=== PATIENT | male | born 1960 | race Caucasian/White ===

== ENCOUNTER 2021-03-24 22:20 | Emergency (ER) | payer OTHER ==
--- NOTE | 2021-03-24 22:45 | EDM.PDOC ---
ED HPI GENERAL MEDICAL PROBLEM - General Chief Complaint: General Stated Complaint: food bolus in esophagous Time Seen by Provider: 03/24/21 22:40 Source of Information: Reports: Patient, Family (), Other ([facility] EMR [place]. [place] EMR). Denies: Old Records ([facility] chart/EMR) History Limitations: Reports: No Limitations - History of Present Illness INITIAL COMMENTS - FREE TEXT/NARRATIVE: The patient was brought to the emergency room via private automobile by his for evaluation of moderate to severe dysphagia which started about 9:15 PM this evening at home while he was eating some ham. He has had several episodes of choking and emesis since that time with no history of aspiration. No recent history of abdominal pain, heartburn, nausea, diarrhea, melena, gross hematochezia, or any food intolerance, including fatty foods, etc.. The patient also denies any recent fever, cough, wheezing, dyspnea, etc.. He denies any specific current pain or discomfort. Patient is having difficulty swallowing his saliva and does feel that a piece of meat may be stuck in his lower esophagus similar to his previous episode in 2016. He has not taken any medications for the symptoms at this point. Onset: Today, Sudden Onset Date: 03/24/21 Onset Time: 09:15 Duration: Constant Location: Reports: Other (No pain) Quality: Reports: Same as Previous Episode Improves with: Reports: None Worsens with: Reports: None Context: Reports: Other (As above). Denies: Sick Contact, Trauma Associated Symptoms: Reports: Nausea/Vomiting (As above). Denies: Confusion, Chest Pain, Cough, Diaphoresis, Fever/Chills, Headaches, Loss of Appetite, Malaise, Shortness of Breath, Syncope, Weakness Treatments FOXER: Reports: Other (see below) (None) - Related Data Allergies Allergy/AdvReac Type Severity Reaction Status Date / Time No Known Allergies Allergy Verified 03/24/21 22:26 Home Meds: Home Meds Aspirin 81 mg PO BRK 12/31/15 [History] Pantoprazole Sodium [Protonix] 20 mg PO DAILY #30 tablet. 12/31/15 [Rx] buPROPion [buPROPion XL] 150 mg PO BID 12/31/15 [History] FLUoxetine HCl [Fluoxetine] 10 mg PO DAILY 03/24/21 [History] Losartan [Cozaar] 50 mg PO DAILY 03/24/21 [History] Sildenafil Citrate [Viagra] 100 mg PO ASDIRECTED 03/24/21 [History] Past Medical History HEENT History: Reports: Hard of Hearing. 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 Cardiovascular History: Reports: High Cholesterol, Hypertension, Other (See Below). Denies: Afib, Aneurysm, Arrhythmia, Blood Clots/VTE/DVT, CAD, Heart Murmur, MT, PVD, Syncope Other Cardiovascular History: Hyperlipidemia currently diet controlled. Respiratory History: Reports: Sleep Apnea, Other (See Below). Denies: Asthma, Bronchitis, Recurrent, COPD, Intubation, Previous, PE, Pneumonia, Recurrent, Pneumothorax, TB Other Respiratory History: The patient is compliant with his CPAP. Gastrointestinal History: Reports: Gastritis, GERD, Other (See Below). Denies: Bowel Obstruction, Celiac Disease, Cholelithiasis, Chronic Constipation, Chronic Diarrhea, Colon Polyp, Diverticulosis, Fatty Liver, Fecal Incontinence, GI Bleed, Hepatitis, Inflammatory Bowel Disease, Irritable Bowel Syndrome, Jaundi ce, Pancreatitis Other Gastrointestinal History: Dysphagia with esophageal stenosis without previous dilatation with initial episode on 12/21/2015 and subsequent EGD as below. Mild gastritis and esophagitis. Genitourinary History: Reports: BPH, Other (See Below). Denies: Acute Renal Failure, Chronic Renal Insuffiency, Renal Calculus, Retention, Urinary, STD, Urinary Incontinence, UTI, Recurrent Other Genitourinary History: Erectile dysfunction. Musculoskeletal History: Reports: Arthritis, Back Pain, Chronic, Neck Pain, Chronic, Osteoarthritis. Denies: Fracture, Gout, RA, SLE Neurological History: Reports: None. Denies: Cerebral Aneurysms, Concussion, CVA, Headaches, Chronic, Head Trauma, Migraines, MS, Parkinson's, Seizure, TIA, Vertigo Psychiatric History: Reports: Anxiety, Depression. Denies: Abuse, Victim of, ADD, ADHD, Addiction, Psych Hospitalization(s), PTSD, Suicide Attempt, Suicidal Ideation Endocrine/Metabolic History: Reports: None. Denies: Diabetes, Type I, Diabetes, Type II, Diabetes Mellitus, Type 3c, Hypothyroidism, IDDM Hematologic History: Reports: None. Denies: Anemia, Blood Transfusion(s), Iron Deficiency Immunologic History: Reports: None. Denies: AIDS, HIV, SLE Oncologic (Cancer) History: Denies: Basal Cell Carcinoma, Colon, Hodgkin's Lymphoma, Leukemia, Lymphoma, Malignant Melanoma, Non-Hodgkin's Lymphoma, Prostate, Squamous Cell Carcinoma Dermatologic History: Reports: None. Denies: Eczema, Psoriasis - Infectious Disease History Infectious Disease History: Reports: Chicken Pox, Shingles. Denies: C- Difficile, Helicobacter Pylori, Measles, Meningitis, Mononucleosis, MRSA, Mumps, Novel Coronavirus (Moderna immunizations x2 last in January 2021), Rheumatic Fever, Rubella, Scarlet Fever, TB, VRE Other Infectious Disease History: Shingles at about age 7 in his back region - Past Surgical History Head Surgeries/Procedures: Reports: None HEENT Surgical History: Reports: LASIK, Oral Surgery, Other (See Below). Denies: Adenoidectomy, Cataract Surgery, Eye Surgery, Laser Surgery, Myringotomy w Tube(s), Naso-Sinus Surgery, Tonsillectomy Other HEENT Surgeries/Procedures: LASIK in June 2019. Multiple teeth extractions with partial uppers. Cardiovascular Surgical History: Reports: None. Denies: Varicose Respiratory Surgical History: Reports: None. Denies: Thoracentesis GI Surgical History: Reports: Colonoscopy, EGD, Other (See Below). Denies: Appendectomy, Cholecystectomy, Hernia, Abdominal, Hernia, Inguinal, Hernia Repair/Other, Polypectomy Other GI Surgeries/Procedures: Colonoscopy in about 2016. EGD with biopsies on 01/13/2016. Male Surgical History: Reports: Circumcision, Vasectomy. Denies: TURP- Transurethral Resection of Prostate Other Male Surgeries/Procedures: Vasectomy at age 44. Circumcision as an infant. Endocrine Surgical History: Reports: None. Denies: Thyroid Biopsy Neurological Surgical History: Reports: None. Denies: C-Spine, Discectomy, Laminectomy, Lumbar Spine, Spinal Fusion, Thoracic Spine Musculoskeletal Surgical History: Reports: Hip Replacement, Joint Replacement, Other (See Below). Denies: Arthroscopic Knee, Arthroscopic Procedure, Carpal Tunnel, Ganglion Cyst, ORIF, Shoulder Surgery Other Musculoskeletal Surgeries/Procedures:: Left hip TEP in 2016. Right hip TEP in 2018. 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 ED EXAM, GENERAL - Physical Exam Exam: See Below Exam Limited By: No Limitations General Appearance: Alert, WD/WN, No Apparent Distress Eye Exam: Bilateral Eye: EOMI, Normal Inspection (No vertigo or nystagmus), PERRL Ears: Normal External Exam, Normal Canal, Normal TMs, Hearing Loss (Stable by history borderline bilateral hearing loss) Nose: Normal Inspection, Normal Mucosa, No Blood Throat/Mouth: Normal Inspection, Normal Lips, Normal Teeth (Multiple missing teeth with partial uppers), Normal Gums, Normal Oropharynx, Normal Voice, No Airway Compromise, Dysphagia (Moderate to severe dysphagia including the saliva initially) Head: Atraumatic, Normocephalic. No: Facial Swelling, Facial Tenderness, Sinus Tenderness Neck: Normal Inspection, Supple, Non-Tender, Full Range of Motion. No: Carotid Bruit, Lymphadenopathy (L), Lymphadenopathy (R), Thyromegaly Respiratory/Chest: No Respiratory Distress, Lungs Clear, Normal Breath Sounds, No Accessory Muscle Use, Chest Non-Tender. No: Pleural Rub, Retractions Cardiovascular: Normal Peripheral Pulses, Regular Rate, Rhythm, No Edema, No Gallop, No JVD, No Murmur, No Rub. No: Gallop/S3, Gallop/S4, Friction Rub Peripheral Pulses: 2+: Radial (L), Radial (R) GI/Abdominal: Normal Bowel Sounds, Soft, Non-Tender, No Organomegaly, No Distention, No Abnormal Bruit, No Mass (Male) Exam: Deferred Rectal (Males) Exam: Deferred Back Exam: Normal Inspection, Full Range of Motion. No: CVA Tenderness (L), CVA Tenderness (R), Muscle Spasm Extremities: Normal Inspection, Normal Range of Motion, Non-Tender, No Pedal Edema, Normal Capillary Refill. No: Maureen's Sign Neurological: Alert, Oriented, CN II-XII Intact, Normal Cognition, Normal Gait, No Motor/Sensory Deficits Psychiatric: Normal Affect, Normal Mood Skin Exam: Warm, Dry, Intact, Normal Color, No Rash. No: Diaphoretic, Wound/Incision Lymphatic: No Adenopathy Course - Vital Signs Last Recorded V/S: Last Vital Signs Temp 36.8 C 03/24/21 22:29 Pulse 54 L 03/25/21 00:20 Resp 16 03/25/21 00:20 BP 131/59 L 03/25/21 00:20 Pulse Ox 99 03/25/21 00:20 Vital Signs - 24 hr 03/24/21 03/25/21 22:29 00:20 Temperature [ 36.8 C Temporal] Pulse, 61 54 L Peripheral [ Pulse Oximetry] Respiratory 16 16 Rate Blood Pressure 136/83 131/59 L [Upper Arm] O2 Sat by Pulse 99 99 Oximetry - Orders/Labs/Meds Orders: Active Orders 24 hr Category Date Time Status Peripheral IV Care [RC] . DIRECTED Care 03/24/21 22:46 Active Sodium Chloride 0.9% [Saline Flush] Med 03/24/21 22:46 Active 10 ml FLUSH ASDIRECTED PRN Obtain Past Medical Record [OM.PC] Routine Oth 03/24/21 22:46 Active Peripheral IV Insertion Adult [OM.PC] Routine Oth 03/24/21 22:46 Ordered Medication Orders Sodium Chloride (Sodium Chloride 0.9% 10 Ml Syringe) 10 ml FLUSH ASDIRECTED PRN PRN Reason: Keep Vein Open Last Admin: 03/24/21 22:56 Dose: 10 ml Documented by: Admin: 03/24/21 22:53 Dose: 10 ml Documented by: NADIYA Labs: None Meds: Medications Generic Name Dose Route Start Last Admin Trade Name Freq PRN Reason Stop Dose Admin Sodium Chloride 10 ml 03/24/21 22:46 03/24/21 22:56 Sodium Chloride 0.9% 10 Ml Syringe FLUSH 10 ml ASDIRECTED PRN Administration Keep Vein Open Discontinued Medications Generic Name Dose Route Start Last Admin Trade Name Freq PRN Reason Stop Dose Admin Famotidine 40 mg 03/24/21 22:46 03/24/21 22:54 Famotidine 20 Mg/2 Ml Sdv IVPUSH 03/24/21 22:47 40 mg ONETIME ONE Administration Glucagon 1 mg 03/24/21 22:46 03/24/21 22:51 Glucagon,Human Recombinant 1 Mg Vial IVPUSH 03/24/21 22:47 1 mg ONETIME ONE Administration Lactated Ringer's 1,000 mls @ 999 mls/hr 03/24/21 23:11 03/24/21 23:26 Ringers, Lactated IV 03/25/21 00:11 999 mls/hr .BOLUS ONE Administration - Radiology Interpretation Free Text/Narrative:: None Departure - Departure Time of Disposition: 00:30 Disposition: Home, Self-Care 01 Clinical Impression: Peptic reflux disease, Mixed anxiety depressive disorder Dysphagia Qualifiers: Dysphagia type: esophageal phase Qualified Code(s): R13.10 - Dysphagia, unspecified Osteoarthritis Qualifiers: Osteoarthritis location: multiple joints Osteoarthritis type: primary Qualified Code(s): M89.49 - Other hypertrophic osteoarthropathy, multiple sites Hypertension Qualifiers: Hypertension type: essential hypertension Qualified Code(s): I10 - Essential (primary) hypertension Hyperlipidemia Qualifiers: Hyperlipidemia type: unspecified Qualified Code(s): E78.5 - Hyperlipidemia, unspecified - Discharge Information *PRESCRIPTION DRUG MONITORING PROGRAM REVIEWED*: Not Applicable *COPY OF PRESCRIPTION DRUG MONITORING REPORT IN PATIENT KATYA: Not Applicable Instructions: Swallowed Foreign Body, Adult, [id number], Glucagon injection Referrals: Con Zheng MD [Primary Care Provider] - Forms: ED Department Discharge Additional Instructions: 1. Followup with your regular provider in 10-14 days as directed for recommended preoperative history and physical for recommended EGD with dilatation. Bring these discharge instructions with you to that visit. 2. Continue to chew your food carefully and eat/drink slowly with aspiration precautions as discussed. 3. Immediately after this visit verify that your cellular telephone's voicemail has been activated and is empty. Also verify that your home telephone's answering machine is operating properly and has space to receive messages. Note that it is sometimes necessary for us to be able to contact you at a later date to discuss your medical care. 4. Please remember that we are ALWAYS here for you and want to answer any questions you may have. Feel free to call the hospital any time and we call you back AISHWARYA. Sepsis Event Note (ED) - Evaluation Sepsis Screening Result: No Definite Risk - Focused Exam Vital Signs: Vital Signs Temp Pulse Resp BP Pulse Ox 03/25/21 00:20 54 L 16 131/59 L 99 03/24/21 22:29 36.8 C 61 16 136/83 99 - Problem List & Annotations (1) Dysphagia SNOMED Code(s): 97822913, 133636698 Code(s): R13.10 - DYSPHAGIA, UNSPECIFIED Status: Acute Onset Date: 03/24/21 Annotation/Comment:: Excellent results with IV glucagon as above with several episodes of emesis in the emergency room, including expulsion of the piece of ham and other food. No aspiration during his ER care. Patient was able to drink fluids, eat moistened bread, etc. prior to discharge without any difficulty. Dysphagia/aspiration precautions were given. Close follow-up by regular provider as per discharge instructions with records from this emergency room visit to be released to his regular provider. Secondary to some mild intolerance with the IV glucagon patient was given 1 L bolus of IV lactated Ringer's with overall good results. EGD results from 01/13/2016 were reviewed with no evidence of Ga's esophagitis, however no dilatation performed at that time. Secondary to his history dilatation may be warranted, since patient has had similar type borderline symptoms during the last couple of weeks. Qualifiers: Dysphagia type: esophageal phase Qualified Code(s): R13.10 - Dysphagia, unspecified (2) Peptic reflux disease SNOMED Code(s): 297869267 Code(s): K21.9 - GASTRO-ESOPHAGEAL REFLUX DISEASE WITHOUT ESOPHAGITIS Status: Chronic Priority: Medium Annotation/Comment:: Otherwise stable by history. Continue current medical therapy. High-dose IV Pepcid given as GI prophylaxis. (3) Mixed anxiety depressive disorder SNOMED Code(s): 483301710 Code(s): F41.8 - OTHER SPECIFIED ANXIETY DISORDERS Status: Chronic Prio rity: Medium Annotation/Comment:: Stable by history (4) Osteoarthritis SNOMED Code(s): 613959217 Code(s): M19.90 - UNSPECIFIED OSTEOARTHRITIS, UNSPECIFIED SITE Status: Chronic Priority: Medium Annotation/Comment:: Stable by history Qualifiers: Osteoarthritis location: multiple joints Osteoarthritis type: primary Qualified Code(s): M89.49 - Other hypertrophic osteoarthropathy, multiple sites (5) Hypertension SNOMED Code(s): 84857398 Code(s): I10 - ESSENTIAL (PRIMARY) HYPERTENSION Status: Chronic Priority: Medium Annotation/Comment:: Stable in the emergency room. Qualifiers: Hypertension type: essential hypertension Qualified Code(s): I10 - Essential (primary) hypertension (6) Hyperlipidemia SNOMED Code(s): 25398214 Code(s): E78.5 - HYPERLIPIDEMIA, UNSPECIFIED Status: Chronic Priority: Medium Annotation/Comment:: Currently diet controlled. Qualifiers: Hyperlipidemia type: unspecified Qualified Code(s): E78.5 - Hyperlipidemia, unspecified - Problem List Review Problem List Initiated/Reviewed/Updated: Yes - My Orders Last 24 Hours: My Active Orders 03/24/21 22:46 Peripheral IV Care [RC] . DIRECTED Sodium Chloride 0.9% [Saline Flush] 10 ml FLUSH ASDIRECTED PRN Obtain Past Medical Record [OM.PC] Routine Peripheral IV Insertion Adult [OM.PC] Routine - Assessment/Plan Last 24 Hours: My Active Orders 03/24/21 22:46 Peripheral IV Care [RC] . DIRECTED Sodium Chloride 0.9% [Saline Flush] 10 ml FLUSH ASDIRECTED PRN Obtain Past Medical Record [OM.PC] Routine Peripheral IV Insertion Adult [OM.PC] Routine Assessment:: As above Plan: As above. Extensive precautions were given to the patient and his , who are in agreement with the treatment plan. See Patient Instructions for further treatment and plan.
[2021-03-24] MEDS ORDERED: Famotidine 20 MG/2 ML SDV IVPUSH ONE (22:46)
[2021-03-24] MEDS ORDERED: Glucagon,Human Recombinant 1 MG Vial IVPUSH ONE (22:46)
[2021-03-24] MEDS: Sodium Chloride 0.9% 10 ML Syringe FLUSH PRN ×2 (22:53→22:56)
[2021-03-24] MEDS ORDERED: Lactated Ringers 1,000 ML IV ONE (23:11)
[2021-03-25 00:46] VITALS: BP 131/59; PULSE 54
== END 2021-03-25 00:25 | disposition home or self-care (01) ==
LOC: LL.ED 22:20
DX: R13.10 Dysphagia, unspecified (principal); K27.9 Peptic ulcer, site unspecified, unspecified as acute or chronic, without hemorrhage or perforation; M89.49 Other hypertrophic osteoarthropathy, multiple sites; I10 Essential (primary) hypertension; E78.5 Hyperlipidemia, unspecified; F41.8 Other specified anxiety disorders; Z79.82 Long term (current) use of aspirin
CPT/HCPCS: 96374; 96375; 99283-25; 99284; J1610; J3490; J7120

== ENCOUNTER 2025-03-13 19:22 | Emergency (ER) | payer OTHER ==
[2025-03-13] MEDS ORDERED: Sodium Chloride 0.9% 10 ML Syringe FLUSH PRN (19:23)
[2025-03-13 19:33] LABS: BASOPHILS ABSOLUTE AUTO 0.08 K/uL (0.00-0.20); BASOPHILS PERCENT AUTO 0.6 % (0.0-2.0); EOSINOPHILS ABSOLUTE AUTO 0.41 K/uL (0.00-0.50); EOSINOPHILS PERCENT AUTO 3.2 % (0.0-5.0); HEMATOCRIT 39.3 % (39.0-49.0); HEMOGLOBIN 12.7 g/dL (13.1-16.8); IMMATURE GRAN ABSOLUTE AUTO 0.06 10^3/uL (0.00-0.04); IMMATURE GRAN PERCENT AUTO 0.5 % (0.0-0.4); LYMPHOCYTES ABSOLUTE AUTO 1.42 K/uL (0.50-3.50); LYMPHOCYTES PERCENT AUTO 10.9 % (10.0-50.0); MEAN CORPUSCULAR HEMOGLOBIN 26.3 pg (28.2-33.3); MEAN CORPUSCULAR HGB CONC 32.3 g/dL (31.7-36.0); MEAN CORPUSCULAR VOLUME 81.4 fL (84.0-98.0); MONOCYTES PERCENT AUTO 9.2 % (2.0-14.0); NEUTROPHILS ABSOLUTE AUTO 9.83 K/uL (1.40-7.00); NEUTROPHILS PERCENT AUTO 75.6 % (45.0-80.0); PLATELET COUNT,PLT 290 K/uL (150-350); RED BLOOD CELL COUNT 4.83 M/uL (4.33-5.41); RED CELL DISTRIBUTION WIDTH 16.1 % (11.2-14.1)
[2025-03-13] MEDS ORDERED: fentaNYL 50 MCG/ML SDV ONE (19:45)
[2025-03-13] MEDS ORDERED: Ondansetron 4 MG/2 ML SDV ONE (19:45)
[2025-03-13 19:48] LABS: PROTHROMBIN TIME 10.4 SEC (9.0-11.1)
[2025-03-13] MEDS ORDERED: fentaNYL 50 MCG/ML SDV IVPUSH ONE ×2 (19:50→20:43)
[2025-03-13] MEDS ORDERED: Ondansetron 4 MG/2 ML SDV IVPUSH ONE (19:50)
[2025-03-13] MEDS ORDERED: Naloxone 0.4 MG/ML SDV IVPUSH PRN (19:50)
[2025-03-13 20:00] LABS: ALANINE AMINOTRANSFERASE,ALT 40 U/L (12-78); ALBUMIN 3.8 g/dL (3.4-5.0); ALKALINE PHOSPHATASE 81 IU/L (46-116); ANION GAP 6.9 meq/L (7-15); ASPARTATE AMNIOTRANSFERASE,AST 33 U/L (15-37); BILIRUBIN TOTAL 0.5 mg/dL (0.2-1.0); BLOOD UREA NITROGEN,BUN 18 mg/dL (7-18); CALCIUM 9.3 mg/dL (8.5-10.1); CARBON DIOXIDE,CO2 29.1 mmol/L (21.0-32.0); CHLORIDE,CL 104 mmol/L (98-107); CREATINE KINASE,CK 121 U/L (26-308); CREATININE 1.39 mg/dL (0.51-1.17); GLUCOSE RANDOM 108 mg/dL (70-99); MAGNESIUM 1.8 mg/dL (1.8-2.4); POTASSIUM,K 4.1 mmol/L (3.5-5.1); PRO B-TYPE NATRIUR PEPT,BNPPRO 24 pg/mL (0-125); PROTEIN TOTAL,TP 6.8 g/dL (6.4-8.2); SODIUM,NA 140 mmol/L (136-145)
[2025-03-13 20:04] LABS: ESTIMATED GFR 57 mL/min (>=60)
[2025-03-13] MEDS: Take Home: Ketorolac 10 MG Tab, 4 Tab Pack PO ONE (21:23)
== END 2025-03-13 21:45 | disposition home or self-care (01) ==
LOC: LL.ED 19:22
DX: S22.41XA Multiple fractures of ribs, right side, initial encounter for closed fracture (principal); I10 Essential (primary) hypertension; E78.00 Pure hypercholesterolemia, unspecified; K21.9 Gastro-esophageal reflux disease without esophagitis; E11.9 Type 2 diabetes mellitus without complications; E03.9 Hypothyroidism, unspecified; Z79.82 Long term (current) use of aspirin; Z79.899 Other long term (current) drug therapy; Z86.16 Personal history of COVID-19; W17.89XA Other fall from one level to another, initial encounter
CPT/HCPCS: 36415; 70450; 71250; 72125; 74176; 80053; 82550; 83735; 83880; 84484; 85025; 85610; 96374; 96375; 96376; 99284; 99284-25; A9270-GY; J2405; J3010